=== PATIENT | female | born 1960 | race Caucasian/White ===

== ENCOUNTER 2019-01-19 14:30 | Outpatient (RCR) | payer OTHER, MEDICAID, SELFPAY ==
--- NOTE | 2018-11-07 16:00 | PT.OPPOC ---
Current Diagnoses Stress incontinence (female) (male) (11/07/18) Urge incontinence (11/07/18) Uterovaginal prolapse, unspecified (11/07/18) Provider Visit Care Team Role Provider Type Iftikhar Paredes MD Primary Care Provider Non-Staff Specialty: Medical Address: [address], [place], [address] Email: Annie Saavedra MD Attending Provider Non-Staff Specialty: Medical Address: [address] , [place], [address] Email: Plan Of Care PT-OP-T Assessment and Plan Start: 11/07/18 07:28 Freq: Status: Active Protocol: Document 11/07/18 14:30 AMB (Rec: 11/09/18 08:16 AMB [email or web address]) Physical Therapy Assessment Rehab Potential Rehabilitation Potential Good Evaluation Complexity Number of Personal Factors/Comorbidities 1-2 Number of Body Systems Impaired 3 Clinical Presentation at Evaluation Evolving Impairments Impairments Functional Activities Sensation Strength Goals Three Impairment prolapse Short Term Goal (STG) [place] will return to working out without feeling an increased heaviness. STG Duration 5 weeks Two Impairment incontinence Short Term Goal (STG) [place] will be able to walk on the treadmill without leaking urine. STG Duration 5 weeks Car Chaser Goal (LTG) [place] will walk into a bathroom and not have a strong urge to urinate immediately. LTG Duration 10 weeks One Impairment pelvic floor strength Short Term Goal (STG) [place] will contract her pelvic floor in standing for 5 seconds. STG Duration 5 weeks Car Chaser Goal (LTG) [place] will improve her pelvic floor in all planes to 3/5 strength. Assessment Summary Assessment [place] attends physical therapy with prolapse, stress incontinence, and urge incontinence. She will benefit from PT to improve her pelvic floor strength and help her safely return to exercise without worsening her prolapse. She has a more complicated history given her T9 fracture and difficulty voiding since then, so given that and her urge incontinence she will benefit from behavioral training in addition to strengthening. Physical Therapy Plan Frequency and Duration Frequency of Treatment 1x/Week Duration of Treatment 8 weeks Plan of Care Start Date 11/07/18 Plan of Care End Date 01/02/19 Therapeutic Interventions Therapeutic Interventions Home Exercise Program Manual Therapy Neuromuscular Re-education Self-Care/Home Management Therapeutic Activities Therapeutic Exercises Modalities Biofeedback Electric Stimulation Next Visit Focus/Plan Next Note Type Treatment Note Next Visit Plan start with sEMG Plan of Care Dates Plan of Care Start Date 11/07/18 Plan of Care End Date 01/02/19 Please Sign and Return: I have reviewed this Plan of Care and certify that the skilled therapy services above are required to meet the patient?s needs. Physician Signature Date Printed Name and Credentials Clinical Instructor Signature Printed Name and Credentials
--- NOTE | 2018-11-07 16:00 | PT.OIE ---
Current Diagnoses Stress incontinence (female) (male) (11/07/18) Urge incontinence (11/07/18) Uterovaginal prolapse, unspecified (11/07/18) Provider Visit Care Team Role Provider Type Iftikhar Paredes MD Primary Care Provider Non-Staff Specialty: Medical Address: [address], [place], [address] Email: Annie Saavedra MD Attending Provider Non-Staff Specialty: Medical Address: [address] [facility], [place], [address] Email: Physical Therapy Initial Evaluation PT-OP-A Visit Information Start: 11/07/18 07:28 Freq: Status: Active Protocol: Document 11/07/18 14:30 AMB (Rec: 11/09/18 08:09 AMB [email or web address]) Out-Patient Physical Therapy Visit Information Visit Information Visit Type Initial Evaluation Visit Start Time 14:30 Visit Stop Time 15:15 Total Visit Minutes 45 Visit Number 1 PT-OP-B Current Condition Start: 11/07/18 07:28 Freq: Status: Active Protocol: Document 11/07/18 14:30 AMB (Rec: 11/09/18 08:09 AMB [email or web address]) Current Condition History of Current Condition Onset Date 9 months ago Current Complaints prolapse with stress and urge urinary incotinence History of Current Condition [place] noticed a prolapse and was able to put it back in a few months ago, but has significantly reduced her exercise due to the feeling of falling out. 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 She states since that time she has had difficulty feeling when she is urinating and also feels more difficulty initiating urination. She denies fecal incontinence or constipation. She did have 2 children after her back surgery, with an episiotomy with the first and tearing with the second. Prior Functional Status Baseline Function- ADL's Independent Baseline Function- Mobility Independent Current Functional Impairments (Reported) Functional Limitations- Recreation/ limits walking on the [employer] treadmill and has not been weightlifting due to feeling of prolapse Personal Factors Other Personal Factors That May Effect hypothyroid, arroyo rods Therapy/Recovery in spine with intermittent numbness/tingling, history of back pain PT-OP-C Subjective Start: 11/07/18 07:28 Freq: Status: Active Protocol: Document 11/07/18 14:30 AMB (Rec: 11/09/18 08:09 AMB [email or web address]) Patient Questionnaires Pelvic Pain and Urgency/Frequency Patient Symptom Scale Pelvic Pain Score 17 PT-OP-I Pelvic Floor Start: 11/07/18 07:28 Freq: Status: Active Protocol: Document 11/07/18 14:30 AMB (Rec: 11/07/18 16:29 AMB [email or web address]) Pelvic Floor Assessment Urine Pelvic Floor Surgery No Leakage Size Small Leakage Cause Exercise Lifting Urge Voiding Frequency 2 Nocturia 3 Urine Pad Type Panty Liner Bowel Bowel Surgery No Pelvic Clock Pelvic Clock 9-12 Tenderness Prolapse Cystocele Grade 2 Contraction Ability Voluntary Contraction Weak Voluntary Relaxation Weak Manual Muscle Testing Left 1 Manual Muscle Testing Right 1 Manual Muscle Testing Anterior 1 Manual Muscle Testing Posterior 2 Muscle Endurance (Seconds) 5 Number of Quick Contractions In 10 4 Seconds Comments Pelvic Floor Comments Tenderness at perineum, cystocele visible at rest, poor bearing ability PT-OP-T Assessment and Plan Start: 11/07/18 07:28 Freq: Status: Active Protocol: Document 11/07/18 14:30 AMB (Rec: 11/09/18 08:16 AMB [email or web address]) Physical Therapy Assessment Rehab Potential Rehabilitation Potential Good Evaluation Complexity Number of Personal Factors/Comorbidities 1-2 Number of Body Systems Impaired 3 Clinical Presentation at Evaluation Evolving Impairments Impairments Functional Activities Sensation Strength Goals Three Impairment prolapse Short Term Goal (STG) [place] will return to working out without feeling an increased heaviness. STG Duration 5 weeks Two Impairment incontinence Short Term Goal (STG) [place] will be able to walk on the treadmill without leaking urine. STG Duration 5 weeks [employer] Markup Clerk Goal (LTG) [place] will walk into a bathroom and not have a strong urge to urinate immediately. LTG Duration 10 weeks One Impairment pelvic floor strength Short Term Goal (STG) [place] will contract her pelvic floor in standing for 5 seconds. STG Duration 5 weeks Fdc Goal (LTG) [place] will improve her pelvic floor in all planes to 3/5 strength. Assessment Summary Assessment [place] attends physical therapy with prolapse, stress incontinence, and urge incontinence. She will benefit from PT to improve her pelvic floor strength and help her safely return to exercise without worsening her prolapse. She has a more complicated history given her T9 fracture and difficulty voiding since then, so given that and her urge incontinence she will benefit from behavioral training in addition to strengthening. Physical Therapy Plan Frequency and Duration Frequency of Treatment 1x/Week Duration of Treatment 8 weeks Plan of Care Start Date 11/07/18 Plan of Care End Date 01/02/19 Therapeutic Interventions Therapeutic Interventions Home Exercise Program Manual Therapy Neuromuscular Re-education Self-Care/Home Management Therapeutic Activities Therapeutic Exercises Modalities Biofeedback Electric Stimulation Next Visit Focus/Plan Next Note Type Treatment Note Next Visit Plan start with sEMG
--- NOTE | 2018-11-18 15:09 | PT.OTN ---
Current Diagnoses Stress incontinence (female) (male) (11/18/18) Urge incontinence (11/18/18) Uterovaginal prolapse, unspecified (11/18/18) Physical Therapy Treatment Note PT-OP-A Visit Information Start: 11/07/18 07:28 Freq: Status: Active Protocol: Document 11/18/18 13:45 AMB (Rec: 11/18/18 14:36 AMB [id number]) Out-Patient Physical Therapy Visit Information Visit Information Visit Type Treatment Note Visit Start Time 13:45 Visit Stop Time 14:30 Total Visit Minutes 45 Visit Number 2 PT-OP-B Current Condition Start: 11/07/18 07:28 Freq: Status: Active Protocol: Document 11/07/18 14:30 AMB (Rec: 11/09/18 08:09 AMB [email or web address]) Current Condition History of Current Condition Onset Date 9 months ago Current Complaints prolapse with stress and urge urinary incotinence History of Current Condition [place] noticed a prolapse and was able to put it back in a few months ago, but has significantly reduced her exercise due to the feeling of falling out. 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 She states since that time she has had difficulty feeling when she is urinating and also feels more difficutly initiating urination. She denies fecal incontinence or constipation. She did have 2 children after her back surgery, with an episiotomy with the first and tearing with the second. Prior Functional Status Baseline Function- ADL's Independent Baseline Function- Mobility Independent Current Functional Impairments (Reported) Functional Limitations- Recreation/ limits walking on the [employer] treadmill and has not been weightlifting due to feeling of prolapse Personal Factors Other Personal Factors That May Effect hypothyroid, arroyo rods Therapy/Recovery in spine with intermittent numbness/tingling, history of back pain PT-OP-C Subjective Start: 11/07/18 07:28 Freq: Status: Active Protocol: Document 11/18/18 13:45 AMB (Rec: 11/18/18 14:36 AMB [id number]) OP-PT Subjective Patient Comments Patient Comments [place] feels the prolapse more when she was lifting, and has not returned to gym exercise yet. PT-OP-I Pelvic Floor Start: 11/07/18 07:28 Freq: Status: Active Protocol: Document 11/07/18 14:30 AMB (Rec: 11/07/18 16:29 AMB [email or web address]) Pelvic Floor Assessment Urine Pelvic Floor Surgery No Leakage Size Small Leakage Cause Exercise Lifting Urge Voiding Frequency 2 Nocturia 3 Urine Pad Type Panty Liner Bowel Bowel Surgery No Pelvic Clock Pelvic Clock 9-12 Tenderness Prolapse Cystocele Grade 2 Contraction Ability Voluntary Contraction Weak Voluntary Relaxation Weak Manual Muscle Testing Left 1 Manual Muscle Testing Right 1 Manual Muscle Testing Anterior 1 Manual Muscle Testing Posterior 2 Muscle Endurance (Seconds) 5 Number of Quick Contractions In 10 4 Seconds Comments Pelvic Floor Comments Tenderness at perineum, cystocele visible at rest, poor bearing ability PT-OP-Q Treatments Start: 11/07/18 07:28 Freq: Status: Active Protocol: Document 11/18/18 13:45 AMB (Rec: 11/18/18 15:08 AMB [email or web address]) Neuro Re-Education Treatment Other Activities 1 Details sEMG Comments quick flicks, long holds, roll outs, focus on relaxation and avoiding compensation with other muscles, working on coordination of breathing PT-OP-T Assessment and Plan Start: 11/07/18 07:28 Freq: Status: Active Protocol: Document 11/18/18 13:45 AMB (Rec: 11/18/18 15:08 AMB [email or web address]) Physical Therapy Assessment Assessment Summary Assessment Pt did well with sEMG. 14 max , 2 baseline, 7 avg. Pt Was challenged with roll out exercises. Physical Therapy Plan Next Visit Focus/Plan Next Note Type Treatment Note Next Visit Plan Continue to discuss ways to exercise without flaring prolapse sx.
--- NOTE | 2018-11-23 15:45 | PT.OTN ---
Current Diagnoses Stress incontinence (female) (male) (11/23/18) Urge incontinence (11/23/18) Uterovaginal prolapse, unspecified (11/23/18) Physical Therapy Treatment Note PT-OP-A Visit Information Start: 11/07/18 07:28 Freq: Status: Active Protocol: Document 11/23/18 13:00 AMB (Rec: 11/23/18 13:42 AMB [id number]) Out-Patient Physical Therapy Visit Information Visit Information Visit Type Treatment Note Visit Start Time 13:00 Visit Stop Time 13:45 Total Visit Minutes 45 Visit Number 3 PT-OP-B Current Condition Start: 11/07/18 07:28 Freq: Status: Active Protocol: Document 11/07/18 14:30 AMB (Rec: 11/09/18 08:09 AMB [email or web address]) Current Condition History of Current Condition Onset Date 9 months ago Current Complaints prolapse with stress and urge urinary incotinence History of Current Condition [place] noticed a prolapse and was able to put it back in a few months ago, but has significantly reduced her exercise due to the feeling of falling out. 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 She states since that time she has had difficulty feeling when she is urinating and also feels more difficutly initiating urination. She denies fecal incontinence or constipation. She did have 2 children after her back surgery, with an episiotomy with the first and tearing with the second. Prior Functional Status Baseline Function- ADL's Independent Baseline Function- Mobility Independent Current Functional Impairments (Reported) Functional Limitations- Recreation/ limits walking on the [employer] treadmill and has not been weightlifting due to feeling of prolapse Personal Factors Other Personal Factors That May Effect hypothyroid, arroyo rods Therapy/Recovery in spine with intermittent numbness/tingling, history of back pain PT-OP-C Subjective Start: 11/07/18 07:28 Freq: Status: Active Protocol: Document 11/23/18 13:00 AMB (Rec: 11/23/18 13:42 AMB [id number]) OP-PT Subjective Patient Comments Patient Comments [place] did the bike and the rowing machine at the gym and that went well, the ellipitical she felt the prolapse dropping. PT-OP-I Pelvic Floor Start: 11/07/18 07:28 Freq: Status: Active Protocol: Document 11/07/18 14:30 AMB (Rec: 11/07/18 16:29 AMB [email or web address]) Pelvic Floor Assessment Urine Pelvic Floor Surgery No Leakage Size Small Leakage Cause Exercise Lifting Urge Voiding Frequency 2 Nocturia 3 Urine Pad Type Panty Liner Bowel Bowel Surgery No Pelvic Clock Pelvic Clock 9-12 Tenderness Prolapse Cystocele Grade 2 Contraction Ability Voluntary Contraction Weak Voluntary Relaxation Weak Manual Muscle Testing Left 1 Manual Muscle Testing Right 1 Manual Muscle Testing Anterior 1 Manual Muscle Testing Posterior 2 Muscle Endurance (Seconds) 5 Number of Quick Contractions In 10 4 Seconds Comments Pelvic Floor Comments Tenderness at perineum, cystocele visible at rest, poor bearing ability PT-OP-Q Treatments Start: 11/07/18 07:28 Freq: Status: Active Protocol: Document 11/23/18 13:00 AMB (Rec: 11/23/18 13:45 AMB [id number]) Therapeutic Exercises Supine Exercises 3 Supine Exercise Name supine march with TrA and pelvic floor Comments coordination with breath 2 Supine Exercise Name TrA with pelvic floor Comments coordination with breath 1 Supine Exercise Name roll in/ roll out Resistance T2 band Reps/Minutes 10 ea Comments breathe Standing Exercises 2 Standing Exercise Name long holds with varied foot position Reps/Minutes 10 Comments wide [place] vs stride stance 1 Standing Exercise Name quick flicks Reps/Minutes 2x12 PT-OP-T Assessment and Plan Start: 11/07/18 07:28 Freq: Status: Active Protocol: Document 11/23/18 13:00 AMB (Rec: 11/23/18 13:42 AMB [id number]) Physical Therapy Assessment Assessment Summary Assessment Pt did well with exercises, but needed to concentrate to be able to contract pelvic floor and TrA at the same time . Physical Therapy Plan Next Visit Focus/Plan Next Note Type Treatment Note Next Visit Plan Continue to discuss ways to exercise without flaring prolapse sx. Progress into functional strengthening.
--- NOTE | 2018-11-24 07:15 | PT.OTN ---
Current Diagnoses Stress incontinence (female) (male) (11/23/18) Urge incontinence (11/23/18) Uterovaginal prolapse, unspecified (11/23/18) Physical Therapy Treatment Note PT-OP-A Visit Information Start: 11/07/18 07:28 Freq: Status: Active Protocol: Document 11/23/18 13:00 AMB (Rec: 11/23/18 13:42 AMB [id number]) Out-Patient Physical Therapy Visit Information Visit Information Visit Type Treatment Note Visit Start Time 13:00 Visit Stop Time 13:45 Total Visit Minutes 45 Visit Number 3 PT-OP-B Current Condition Start: 11/07/18 07:28 Freq: Status: Active Protocol: Document 11/07/18 14:30 AMB (Rec: 11/09/18 08:09 AMB [email or web address]) Current Condition History of Current Condition Onset Date 9 months ago Current Complaints prolapse with stress and urge urinary incotinence History of Current Condition [place] noticed a prolapse and was able to put it back in a few months ago, but has significantly reduced her exercise due to the feeling of falling out. 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 She states since that time she has had difficulty feeling when she is urinating and also feels more difficutly initiating urination. She denies fecal incontinence or constipation. She did have 2 children after her back surgery, with an episiotomy with the first and tearing with the second. Prior Functional Status Baseline Function- ADL's Independent Baseline Function- Mobility Independent Current Functional Impairments (Reported) Functional Limitations- Recreation/ limits walking on the [employer] treadmill and has not been weightlifting due to feeling of prolapse Personal Factors Other Personal Factors That May Effect hypothyroid, arroyo rods Therapy/Recovery in spine with intermittent numbness/tingling, history of back pain PT-OP-C Subjective Start: 11/07/18 07:28 Freq: Status: Active Protocol: Document 11/23/18 13:00 AMB (Rec: 11/23/18 13:42 AMB [id number]) OP-PT Subjective Patient Comments Patient Comments [place] did the bike and the rowing machine at the gym and that went well, the ellipitical she felt the prolapse dropping. PT-OP-I Pelvic Floor Start: 11/07/18 07:28 Freq: Status: Active Protocol: Document 11/07/18 14:30 AMB (Rec: 11/07/18 16:29 AMB [email or web address]) Pelvic Floor Assessment Urine Pelvic Floor Surgery No Leakage Size Small Leakage Cause Exercise Lifting Urge Voiding Frequency 2 Nocturia 3 Urine Pad Type Panty Liner Bowel Bowel Surgery No Pelvic Clock Pelvic Clock 9-12 Tenderness Prolapse Cystocele Grade 2 Contraction Ability Voluntary Contraction Weak Voluntary Relaxation Weak Manual Muscle Testing Left 1 Manual Muscle Testing Right 1 Manual Muscle Testing Anterior 1 Manual Muscle Testing Posterior 2 Muscle Endurance (Seconds) 5 Number of Quick Contractions In 10 4 Seconds Comments Pelvic Floor Comments Tenderness at perineum, cystocele visible at rest, poor bearing ability PT-OP-Q Treatments Start: 11/07/18 07:28 Freq: Status: Active Protocol: Document 11/23/18 13:00 AMB (Rec: 11/23/18 13:45 AMB [id number]) Therapeutic Exercises Supine Exercises 3 Supine Exercise Name supine march with TrA and pelvic floor Comments coordination with breath 2 Supine Exercise Name TrA with pelvic floor Comments coordination with breath 1 Supine Exercise Name roll in/ roll out Resistance T2 band Reps/Minutes 10 ea Comments breathe Standing Exercises 2 Standing Exercise Name long holds with varied foot position Reps/Minutes 10 Comments wide [place] vs stride stance 1 Standing Exercise Name quick flicks Reps/Minutes 2x12 PT-OP-T Assessment and Plan Start: 11/07/18 07:28 Freq: Status: Active Protocol: Document 11/23/18 13:00 AMB (Rec: 11/23/18 13:42 AMB [id number]) Physical Therapy Assessment Assessment Summary Assessment Pt did well with exercises, but needed to concentrate to be able to contract pelvic floor and TrA at the same time . Physical Therapy Plan Next Visit Focus/Plan Next Note Type Treatment Note Next Visit Plan Continue to discuss ways to exercise without flaring prolapse sx. Progress into functional strengthening.
--- NOTE | 2018-11-30 16:17 | PT.OTN ---
Current Diagnoses Stress incontinence (female) (male) (11/30/18) Urge incontinence (11/30/18) Uterovaginal prolapse, unspecified (11/30/18) Physical Therapy Treatment Note PT-OP-A Visit Information Start: 11/07/18 07:28 Freq: Status: Active Protocol: Document 11/30/18 14:30 AMB (Rec: 11/30/18 16:13 AMB [email or web address]) Out-Patient Physical Therapy Visit Information Visit Information Visit Type Treatment Note Visit Start Time 14:30 Visit Stop Time 15:15 Total Visit Minutes 45 Visit Number 4 PT-OP-B Current Condition Start: 11/07/18 07:28 Freq: Status: Active Protocol: Document 11/07/18 14:30 AMB (Rec: 11/09/18 08:09 AMB [email or web address]) Current Condition History of Current Condition Onset Date 9 months ago Current Complaints prolapse with stress and urge urinary incotinence History of Current Condition [place] noticed a prolapse and was able to put it back in a few months ago, but has significantly reduced her exercise due to the feeling of falling out. 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 She states since that time she has had difficulty feeling when she is urinating and also feels more difficutly initiating urination. She denies fecal incontinence or constipation. She did have 2 children after her back surgery, with an episiotomy with the first and tearing with the second. Prior Functional Status Baseline Function- ADL's Independent Baseline Function- Mobility Independent Current Functional Impairments (Reported) Functional Limitations- Recreation/ limits walking on the [employer] treadmill and has not been weightlifting due to feeling of prolapse Personal Factors Other Personal Factors That May Effect hypothyroid, arroyo rods Therapy/Recovery in spine with intermittent numbness/tingling, history of back pain PT-OP-C Subjective Start: 11/07/18 07:28 Freq: Status: Active Protocol: Document 11/30/18 14:30 AMB (Rec: 11/30/18 16:13 AMB [email or web address]) OP-PT Subjective Patient Comments Patient Comments [place] feels she is about 80 % better. She is concerned about the feeling of the prolapse getting worse if she returns to hiking and lifting weights. PT-OP-I Pelvic Floor Start: 11/07/18 07:28 Freq: Status: Active Protocol: Document 11/07/18 14:30 AMB (Rec: 11/07/18 16:29 AMB [email or web address]) Pelvic Floor Assessment Urine Pelvic Floor Surgery No Leakage Size Small Leakage Cause Exercise Lifting Urge Voiding Frequency 2 Nocturia 3 Urine Pad Type Panty Liner Bowel Bowel Surgery No Pelvic Clock Pelvic Clock 9-12 Tenderness Prolapse Cystocele Grade 2 Contraction Ability Voluntary Contraction Weak Voluntary Relaxation Weak Manual Muscle Testing Left 1 Manual Muscle Testing Right 1 Manual Muscle Testing Anterior 1 Manual Muscle Testing Posterior 2 Muscle Endurance (Seconds) 5 Number of Quick Contractions In 10 4 Seconds Comments Pelvic Floor Comments Tenderness at perineum, cystocele visible at rest, poor bearing ability PT-OP-Q Treatments Start: 11/07/18 07:28 Freq: Status: Active Protocol: Document 11/30/18 14:30 AMB (Rec: 11/30/18 15:05 AMB [id number]) Gym Equipment Cable Column (Body Solid) Rows Details with pelvic floor contract Resistance 10# Therapeutic Exercises Supine Exercises 3 Supine Exercise Name supine march with TrA and pelvic floor Comments coordination with breath 2 Supine Exercise Name TrA with pelvic floor Comments coordination with breath Standing Exercises 2 Standing Exercise Name long holds with varied foot position Reps/Minutes 10 Comments wide [place] vs stride stance 1 Standing Exercise Name quick flicks Reps/Minutes 2x12 PT-OP-T Assessment and Plan Start: 11/07/18 07:28 Freq: Status: Active Protocol: Document 11/30/18 14:30 AMB (Rec: 11/30/18 16:13 AMB [email or web address]) Physical Therapy Assessment Assessment Summary Assessment Pt had difficulty teddy pelvic floor with rows, feels like she loses it when she pulls, so encouraged pt in light barbell exercises for now while at the gym. Physical Therapy Plan Next Visit Focus/Plan Next Note Type Treatment Note Next Visit Plan Continue to discuss ways to exercise without flaring prolapse sx. Progress into functional strengthening.
--- NOTE | 2018-12-21 09:15 | PT.OTN ---
Current Diagnoses Stress incontinence (female) (male) (12/21/18) Urge incontinence (12/21/18) Uterovaginal prolapse, unspecified (12/21/18) Physical Therapy Treatment Note PT-OP-A Visit Information Start: 11/07/18 07:28 Freq: Status: Active Protocol: Document 12/21/18 08:15 AMB (Rec: 12/21/18 09:15 AMB [id number]) Out-Patient Physical Therapy Visit Information Visit Information Visit Type Treatment Note Visit Start Time 08:15 Visit Stop Time 09:00 Total Visit Minutes 45 Visit Number 5 PT-OP-B Current Condition Start: 11/07/18 07:28 Freq: Status: Active Protocol: Document 11/07/18 14:30 AMB (Rec: 11/09/18 08:09 AMB [email or web address]) Current Condition History of Current Condition Onset Date 9 months ago Current Complaints prolapse with stress and urge urinary incotinence History of Current Condition [place] noticed a prolapse and was able to put it back in a few months ago, but has significantly reduced her exercise due to the feeling of falling out. 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 She states since that time she has had difficulty feeling when she is urinating and also feels more difficutly initiating urination. She denies fecal incontinence or constipation. She did have 2 children after her back surgery, with an episiotomy with the first and tearing with the second. Prior Functional Status Baseline Function- ADL's Independent Baseline Function- Mobility Independent Current Functional Impairments (Reported) Functional Limitations- Recreation/ limits walking on the [employer] treadmill and has not been weightlifting due to feeling of prolapse Personal Factors Other Personal Factors That May Effect hypothyroid, arroyo rods Therapy/Recovery in spine with intermittent numbness/tingling, history of back pain PT-OP-C Subjective Start: 11/07/18 07:28 Freq: Status: Active Protocol: Document 12/21/18 08:15 AMB (Rec: 12/21/18 09:15 AMB [id number]) OP-PT Subjective Patient Comments Patient Comments [place] went to the gym and was able to do the elliptical and lift light hand weights, but no machines as that starts at 20# and she doesn't think that that would work. Walking continues to be the biggest problem. PT-OP-I Pelvic Floor Start: 11/07/18 07:28 Freq: Status: Active Protocol: Document 11/07/18 14:30 AMB (Rec: 11/07/18 16:29 AMB [email or web address]) Pelvic Floor Assessment Urine Pelvic Floor Surgery No Leakage Size Small Leakage Cause Exercise,Lifting,Urge Voiding Frequency 2 Nocturia 3 Urine Pad Type Panty Liner Bowel Bowel Surgery No Pelvic Clock Pelvic Clock 9-12 Tenderness Prolapse Cystocele Grade 2 Contraction Ability Voluntary Contraction Weak Voluntary Relaxation Weak Manual Muscle Testing Left 1 Manual Muscle Testing Right 1 Manual Muscle Testing Anterior 1 Manual Muscle Testing Posterior 2 Muscle Endurance (Seconds) 5 Number of Quick Contractions In 10 4 Seconds Comments Pelvic Floor Comments Tenderness at perineum, cystocele visible at rest, poor bearing ability PT-OP-Q Treatments Start: 11/07/18 07:28 Freq: Status: Active Protocol: Document 12/21/18 08:15 AMB (Rec: 12/21/18 09:15 AMB [id number]) Therapeutic Exercises Standing Exercises 3 Standing Exercise Name mini squat/mini lunge Reps/Minutes 10 ea 2 Standing Exercise Name long holds with varied foot position Reps/Minutes 10 Comments wide [place] vs stride stance 1 Standing Exercise Name quick flicks Reps/Minutes 2x12 Neuro Re-Education Treatment Other Activities 1 Details sEMG Comments quick flicks and long holds PT-OP-T Assessment and Plan Start: 11/07/18 07:28 Freq: Status: Active Protocol: Document 12/21/18 08:15 AMB (Rec: 12/21/18 09:15 AMB [id number]) Physical Therapy Assessment Assessment Summary Assessment Pt has improved her muscle activity on sEMG to maximum of 24. Overall improving well, but walking continues to bring the prolapse down, could consider pessary given her active lifestyle. Physical Therapy Plan Next Visit Focus/Plan Next Note Type Treatment Note Next Visit Plan Continue to exercise in standing as tolerated.
--- NOTE | 2019-01-06 15:20 | PT.OTN ---
Current Diagnoses Stress incontinence (female) (male) (01/06/19) Urge incontinence (01/06/19) Uterovaginal prolapse, unspecified (01/06/19) Physical Therapy Treatment Note PT-OP-A Visit Information Start: 11/07/18 07:28 Freq: Status: Active Protocol: Document 01/06/19 14:30 AMB (Rec: 01/09/19 07:14 AMB [email or web address]) Out-Patient Physical Therapy Visit Information Visit Information Visit Type Progress Note Visit Start Time 14:30 Visit Stop Time 15:10 Total Visit Minutes 40 PT-OP-B Current Condition Start: 11/07/18 07:28 Freq: Status: Active Protocol: Document 11/07/18 14:30 AMB (Rec: 11/09/18 08:09 AMB [email or web address]) Current Condition History of Current Condition Onset Date 9 months ago Current Complaints prolapse with stress and urge urinary incotinence History of Current Condition [place] noticed a prolapse and was able to put it back in a few months ago, but has significantly reduced her exercise due to the feeling of falling out. 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 She states since that time she has had difficulty feeling when she is urinating and also feels more difficutly initiating urination. She denies fecal incontinence or constipation. She did have 2 children after her back surgery, with an episiotomy with the first and tearing with the second. Prior Functional Status Baseline Function- ADL's Independent Baseline Function- Mobility Independent Current Functional Impairments (Reported) Functional Limitations- Recreation/ limits walking on the [employer] treadmill and has not been weightlifting due to feeling of prolapse Personal Factors Other Personal Factors That May Effect hypothyroid, arroyo rods Therapy/Recovery in spine with intermittent numbness/tingling, history of back pain PT-OP-C Subjective Start: 11/07/18 07:28 Freq: Status: Active Protocol: Document 01/06/19 14:30 AMB (Rec: 01/09/19 07:14 AMB [email or web address]) OP-PT Subjective Patient Comments Patient Comments [place] feels that her overall symptoms are improving , although walking continues to be a major contributor to her feeling of falling out. PT-OP-I Pelvic Floor Start: 11/07/18 07:28 Freq: Status: Active Protocol: Document 11/07/18 14:30 AMB (Rec: 11/07/18 16:29 AMB [email or web address]) Pelvic Floor Assessment Urine Pelvic Floor Surgery No Leakage Size Small Leakage Cause Exercise,Lifting,Urge Voiding Frequency 2 Nocturia 3 Urine Pad Type Panty Liner Bowel Bowel Surgery No Pelvic Clock Pelvic Clock 9-12 Tenderness Prolapse Cystocele Grade 2 Contraction Ability Voluntary Contraction Weak Voluntary Relaxation Weak Manual Muscle Testing Left 1 Manual Muscle Testing Right 1 Manual Muscle Testing Anterior 1 Manual Muscle Testing Posterior 2 Muscle Endurance (Seconds) 5 Number of Quick Contractions In 10 4 Seconds Comments Pelvic Floor Comments Tenderness at perineum, cystocele visible at rest, poor bearing ability PT-OP-Q Treatments Start: 11/07/18 07:28 Freq: Status: Active Protocol: Document 01/06/19 14:30 AMB (Rec: 01/09/19 15:19 AMB [email or web address]) Therapeutic Exercises Standing Exercises 4 Standing Exercise Name PF contract with lift Resistance 5# Comments bicep curl, ant deltoid lift 3 Standing Exercise Name mini squat/mini lunge Reps/Minutes 10 ea 2 Standing Exercise Name long holds with varied foot position Reps/Minutes 10 Comments wide [place] vs stride stance 1 Standing Exercise Name quick flicks Reps/Minutes 2x12 PT-OP-T Assessment and Plan Start: 11/07/18 07:28 Freq: Status: Active Protocol: Document 01/06/19 14:30 AMB (Rec: 01/09/19 15:19 AMB [email or web address]) Physical Therapy Assessment Goals Three Impairment prolapse Short Term Goal (STG) [place] will return to working out without feeling an increased heaviness. PARTIALLY MET: can do the elliptical and very light weights but has not returned to the treadmill or her previous workout routine STG Duration 5 weeks Two Impairment incontinence Short Term Goal (STG) [place] will be able to walk on the treadmill without leaking urine. STG Duration 5 weeks [employer] Goal (LTG) [place] will walk into a bathroom and not have a strong urge to urinate immediately. LTG Duration MET One Impairment pelvic floor strength Short Term Goal (STG) [place] will contract her pelvic floor in standing for 5 seconds. STG Duration MET Jail Goal (LTG) [place] will improve her pelvic floor in all planes to 3/5 strength. LTG Duration 8 weeks Assessment Summary Assessment [place], overall has shown good improvement in her ability to contract and her awareness of her pelvic floor. She continues to feel her prolapse with extended walking (especially with mowing the lawn over the weekend). She will discuss possible pessary with OBGYN when done with PT if sx do not resolve fully. Further PT will focus on engaging pelvic floor and avoiding abdominal pressure in functional positions, and return to exercise without flaring sx. Physical Therapy Plan Frequency and Duration Frequency of Treatment 1x/Week Duration of Treatment 6 weeks Plan of Care Start Date 01/06/19 Plan of Care End Date 02/17/19 Therapeutic Interventions Therapeutic Interventions Home Exercise Program,Manual Therapy,Neuromuscular Re- education,Self-Care/Home Management,Therapeutic Activities,Therapeutic Exercises Modalities Biofeedback,Electric Stimulation Next Visit Focus/Plan Next Note Type Treatment Note Next Visit Plan Continue to exercise in standing as tolerated.
--- NOTE | 2019-01-06 15:21 | PT.OPPOC ---
Current Diagnoses Stress incontinence (female) (male) (01/06/19) Urge incontinence (01/06/19) Uterovaginal prolapse, unspecified (01/06/19) Visit Care Team Role Provider Type Iftikhar Paredes MD Primary Care Provider Non-Staff Specialty: Medical Address: [address], [place], [address] Email: Annie Saavedra MD Attending Provider Non-Staff Specialty: Medical Address: [address], [place], [address] Email: Plan Of Care PT-OP-T Assessment and Plan Start: 11/07/18 07:28 Freq: Status: Active Protocol: Document 01/06/19 14:30 AMB (Rec: 01/09/19 15:19 AMB [email or web address]) Physical Therapy Assessment Goals Three Impairment prolapse Short Term Goal (STG) [place] will return to working out without feeling an increased heaviness. PARTIALLY MET: can do the elliptical and very light weights but has not returned to the treadmill or her previous workout routine STG Duration 5 weeks Two Impairment incontinence Short Term Goal (STG) [place] will be able to walk on the treadmill without leaking urine. STG Duration 5 weeks Con[employer] Assistant Goal (LTG) [place] will walk into a bathroom and not have a strong urge to urinate immediately. LTG Duration MET One Impairment pelvic floor strength Short Term Goal (STG) [place] will contract her pelvic floor in standing for 5 seconds. STG Duration MET Detention Goal (LTG) [place] will improve her pelvic floor in all planes to 3/5 strength. LTG Duration 8 weeks Assessment Summary Assessment [place], overall has shown good improvement in her ability to contract and her awareness of her pelvic floor. She continues to feel her prolapse with extended walking (especially with mowing the lawn over the weekend). She will discuss possible pessary with OBGYN when done with PT if sx do not resolve fully. Further PT will focus on engaging pelvic floor and avoiding abdominal pressure in functional positions, and return to exercise without flaring sx. Physical Therapy Plan Frequency and Duration Frequency of Treatment 1x/Week Duration of Treatment 6 weeks Plan of Care Start Date 01/06/19 Plan of Care End Date 02/17/19 Therapeutic Interventions Therapeutic Interventions Home Exercise Program,Manual Therapy,Neuromuscular Re- education,Self-Care/Home Management,Therapeutic Activities,Therapeutic Exercises Modalities Biofeedback,Electric Stimulation Next Visit Focus/Plan Next Note Type Treatment Note Next Visit Plan Continue to exercise in standing as tolerated. Plan of Care Dates Plan of Care Start Date 01/06/19 Plan of Care End Date 02/17/19
--- NOTE | 2019-01-12 16:38 | PT.OTN ---
Current Diagnoses Stress incontinence (female) (male) (01/12/19) Urge incontinence (01/12/19) Uterovaginal prolapse, unspecified (01/12/19) Physical Therapy Treatment Note PT-OP-A Visit Information Start: 11/07/18 07:28 Freq: Status: Active Protocol: Document 01/12/19 14:30 AMB (Rec: 01/12/19 16:38 AMB [email or web address]) Out-Patient Physical Therapy Visit Information Visit Information Visit Type Treatment Note Visit Start Time 14:30 Visit Stop Time 15:15 Total Visit Minutes 45 Visit Number 7 PT-OP-B Current Condition Start: 11/07/18 07:28 Freq: Status: Active Protocol: Document 11/07/18 14:30 AMB (Rec: 11/09/18 08:09 AMB [email or web address]) Current Condition History of Current Condition Onset Date 9 months ago Current Complaints prolapse with stress and urge urinary incotinence History of Current Condition [place] noticed a prolapse and was able to put it back in a few months ago, but has significantly reduced her exercise due to the feeling of falling out. 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 She states since that time she has had difficulty feeling when she is urinating and also feels more difficutly initiating urination. She denies fecal incontinence or constipation. She did have 2 children after her back surgery, with an episiotomy with the first and tearing with the second. Prior Functional Status Baseline Function- ADL's Independent Baseline Function- Mobility Independent Current Functional Impairments (Reported) Functional Limitations- Recreation/ limits walking on the [employer] treadmill and has not been weightlifting due to feeling of prolapse Personal Factors Other Personal Factors That May Effect hypothyroid, arroyo rods Therapy/Recovery in spine with intermittent numbness/tingling, history of back pain PT-OP-C Subjective Start: 11/07/18 07:28 Freq: Status: Active Protocol: Document 01/12/19 14:30 AMB (Rec: 01/12/19 16:38 AMB [email or web address]) OP-PT Subjective Patient Comments Patient Comments Fiona feels better, she was able to mow her lawn, but did need to take rest breaks. PT-OP-I Pelvic Floor Start: 11/07/18 07:28 Freq: Status: Active Protocol: Document 11/07/18 14:30 AMB (Rec: 11/07/18 16:29 AMB [email or web address]) Pelvic Floor Assessment Urine Pelvic Floor Surgery No Leakage Size Small Leakage Cause Exercise,Lifting,Urge Voiding Frequency 2 Nocturia 3 Urine Pad Type Panty Liner Bowel Bowel Surgery No Pelvic Clock Pelvic Clock 9-12 Tenderness Prolapse Cystocele Grade 2 Contraction Ability Voluntary Contraction Weak Voluntary Relaxation Weak Manual Muscle Testing Left 1 Manual Muscle Testing Right 1 Manual Muscle Testing Anterior 1 Manual Muscle Testing Posterior 2 Muscle Endurance (Seconds) 5 Number of Quick Contractions In 10 4 Seconds Comments Pelvic Floor Comments Tenderness at perineum, cystocele visible at rest, poor bearing ability PT-OP-Q Treatments Start: 11/07/18 07:28 Freq: Status: Active Protocol: Document 01/12/19 14:30 AMB (Rec: 01/12/19 16:38 AMB [email or web address]) Therapeutic Exercises Standing Exercises 4 Standing Exercise Name PF contract with lift Resistance 5# Comments bicep curl, ant deltoid lift 3 Standing Exercise Name mini squat/mini lunge Reps/Minutes 10 ea 2 Standing Exercise Name long holds with varied foot position Reps/Minutes 10 Comments wide [place] vs stride stance 1 Standing Exercise Name quick flicks Reps/Minutes 2x12 Neuro Re-Education Treatment Other Activities 1 Details sEMG Comments quick flicks and long holds PT-OP-T Assessment and Plan Start: 11/07/18 07:28 Freq: Status: Active Protocol: Document 01/12/19 14:30 AMB (Rec: 01/12/19 16:38 AMB [email or web address]) Physical Therapy Assessment Assessment Summary Assessment [place] has shown good improvement functionally, sEMG numbers are about the same, but lower baseline. Better able to hold a contraction. Physical Therapy Plan Next Visit Focus/Plan Next Note Type Treatment Note Next Visit Plan Continue to exercise in standing as tolerated.
--- NOTE | 2019-01-19 16:21 | PT.OTN ---
Current Diagnoses Stress incontinence (female) (male) (01/19/19) Urge incontinence (01/19/19) Uterovaginal prolapse, unspecified (01/19/19) Physical Therapy Treatment Note PT-OP-A Visit Information Start: 11/07/18 07:28 Freq: Status: Active Protocol: Document 01/19/19 14:30 AMB (Rec: 01/19/19 16:16 AMB [email or web address]) Out-Patient Physical Therapy Visit Information Visit Information Visit Type Treatment Note Visit Start Time 14:30 Visit Stop Time 15:15 Total Visit Minutes 45 Visit Number 8 PT-OP-B Current Condition Start: 11/07/18 07:28 Freq: Status: Active Protocol: Document 11/07/18 14:30 AMB (Rec: 11/09/18 08:09 AMB [email or web address]) Current Condition History of Current Condition Onset Date 9 months ago Current Complaints prolapse with stress and urge urinary incotinence History of Current Condition [place] noticed a prolapse and was able to put it back in a few months ago, but has significantly reduced her exercise due to the feeling of falling out. 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 She states since that time she has had difficulty feeling when she is urinating and also feels more difficutly initiating urination. She denies fecal incontinence or constipation. She did have 2 children after her back surgery, with an episiotomy with the first and tearing with the second. Prior Functional Status Baseline Function- ADL's Independent Baseline Function- Mobility Independent Current Functional Impairments (Reported) Functional Limitations- Recreation/ limits walking on the [employer] treadmill and has not been weightlifting due to feeling of prolapse Personal Factors Other Personal Factors That May Effect hypothyroid, arroyo rods Therapy/Recovery in spine with intermittent numbness/tingling, history of back pain PT-OP-C Subjective Start: 11/07/18 07:28 Freq: Status: Active Protocol: Document 01/19/19 14:30 AMB (Rec: 01/19/19 16:16 AMB [email or web address]) OP-PT Subjective Patient Comments Patient Comments Fiona feels like she is ready to be discharged. She has a plan for how to continue her exercises, and is excited that she no longer has to manually place her bladder up. she is frustrated that she has been unable to hike with out feeling like she is falling out, but she is going to talk to her OBGYN about a pessary. PT-OP-I Pelvic Floor Start: 11/07/18 07:28 Freq: Status: Active Protocol: Document 01/19/19 14:42 AMB (Rec: 01/19/19 14:59 AMB [id number]) Pelvic Floor Assessment Prolapse Cystocele Grade 2 PT-OP-Q Treatments Start: 11/07/18 07:28 Freq: Status: Active Protocol: Document 01/19/19 14:30 AMB (Rec: 01/19/19 16:16 AMB [email or web address]) Therapeutic Exercises Standing Exercises 4 Standing Exercise Name PF contract with lift Resistance 5# Comments tricep and ant deltoid lift 3 Standing Exercise Name mini squat/mini lunge Reps/Minutes 10 ea 2 Standing Exercise Name long holds with varied foot position Reps/Minutes 10 Comments wide A[place] vs stride stance 1 Standing Exercise Name quick flicks Reps/Minutes 2x12 PT-OP-T Assessment and Plan Start: 11/07/18 07:28 Freq: Status: Active Protocol: Document 01/19/19 15:07 AMB (Rec: 01/19/19 15:08 AMB [id number]) Physical Therapy Assessment Goals Three Impairment prolapse Short Term Goal (STG) [place] will return to working out without feeling an increased heaviness. PARTIALLY MET: can do the elliptical and very light weights but has not returned to the treadmill or her previous workout routine STG Duration MET Two Impairment incontinence Short Term Goal (STG) [place] will be able to walk on the treadmill without leaking urine. STG Duration NOT MET Prison Goal (LTG) [place] will walk into a bathroom and not have a strong urge to urinate immediately. LTG Duration MET One Impairment pelvic floor strength Short Term Goal (STG) [place] will contract her pelvic floor in standing for 5 seconds. STG Duration MET Prison Goal (LTG) [place] will improve her pelvic floor in all planes to 3/5 strength. LTG Duration MET Assessment Summary Assessment Fiona has been able to add activity back into her lifestyle with modifications without a worsening of her prolapse. She still did have grade 2 prolapse both at rest and at bearing, but this was after a long day. She continues to have to modify her lifestyle more than she would like (hiking) due to the feeling of falling out, so I would suggest she follow up with her MD regarding a pessary. She has shown good improvement of every day activity tolerance, and really just has symptoms with higher level activities (mowing the lawn) but has found ways to manage that (going inside and lying down with feet up). Physical Therapy Plan Discharge Physical Therapy Discharge Reasons Goals Met
== END 2019-01-20 12:01 | disposition home or self-care (01) ==
LOC: PHYS 14:30
PROVIDERS: PCP Family Medicine; Visit Provider Obstetrics & Gynecology
DX: N81.4 Uterovaginal prolapse, unspecified (principal); N39.3 Stress incontinence (female) (male); N39.41 Urge incontinence
CPT/HCPCS: 97110; 97112; 97162